=== PATIENT | female | born 1955 | race Caucasian/White ===

== ENCOUNTER 2019-12-03 14:54 | Emergency (ER) | payer MEDICARE, MEDICAID ==
[~2019-12-03] VITALS: Ht 157.5 cm; Wt 69.0 kg
[2019-12-03 15:35] LABS: URINE BILIRUBIN NEGATIVE (Negative); URINE BLOOD 2+ (Negative); URINE CLARITY CLEAR; URINE COLOR YELLOW; URINE GLUCOSE-RANDOM NEGATIVE (Negative); URINE KETONES NEGATIVE (Negative); URINE LEUKOCYTES-REFLEX NEGATIVE (Negative); URINE NITRITE-REFLEX NEGATIVE (Negative); URINE PROTEIN NEGATIVE (Negative); URINE UROBILINOGEN 0.2 E.U./dl (0.2-1.0)
[2019-12-03 15:43] LABS: MUCUS None Seen strn/LPF (None Seen); SQUAMOUS 0-3 Few /LPF (0-3)
[2019-12-03 15:44] LABS: BACTERIA-REFLEX None Seen /HPF (None Seen); CASTS None Seen /LPF (None Seen); CRYSTALS None Seen /LPF (None Seen); URINE RBC 0-2 Rare /HPF (0-2); URINE WBC-REFLEX 0-5 Rare /HPF (0-5)
[2019-12-03 15:48] LABS: ABSOLUTE BASOPHILS 0.1 thou/uL (0.0-0.2); ABSOLUTE EOSINOPHILS 0.1 thou/uL (0.0-0.7); ABSOLUTE LYMPHOCYTES 2.5 thou/uL (0.8-5.3); ABSOLUTE MONOCYTES 0.3 thou/uL (0.0-1.2); ABSOLUTE NEUTROPHILS 2.5 thou/uL (1.6-8.1); BASOPHILS 0.9 %; EOSINOPHILS 1.2 %; MCH 31.4 pg (26.0-34.0); MCHC 34.1 g/dL (28.0-37.0); MCV 92.1 fL (80.0-100.0); MONOCYTES 5.3 %; MPV 8.1 fl. (7.2-11.1); NUCLEATED RBCS 0 /100WBC; PLATELET COUNT* 329 thou/uL (150-400); POLYS 46.6 %; RBC 4.45 mil/uL (4.20-5.00); RDW-CV 13.4 % (10.5-14.5); WBC 5.4 thou/uL (4.0-11.0)
[2019-12-03 15:55] LABS: CREATININE 0.8 mg/dL (0.6-1.3); POTASSIUM 3.6 mmol/L (3.5-5.1)
[2019-12-03 16:06] LABS: ALBUMIN 3.8 g/dL (3.4-5.0); TOTAL BILIRUBIN 0.3 mg/dL (<0.1-1.0); TOTAL PROTEIN 8.4 g/dL (6.4-8.2)
[2019-12-03 16:23] LABS: INFLUENZA A ANTIGEN Negative (Negative); INFLUENZA B ANTIGEN Negative (Negative)
--- NOTE | 2019-12-03 16:40 | EKG ---
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 : 1955 Requested By: Nedra Denson Order Number: [id number] MD: Chuckie Martinez Measurements Intervals [place] Rate: 69 P: 45 WV: 167 QRS: -5 QRSD: 95 T: 17 QT: 395 QTc: 423 Interpretive Statements Sinus rhythm Possible left atrial enlargement Possible anteroseptal infarct, old Baseline wander in lead(s) II No previous ECG available for comparison Electronically Signed On 12-03-2019 16:40:05 [employer] by Chuckie Martinez [email or web address] <ELECTRONICALLY SIGNED> By: Chuckie Martinez MD, [facility] 12/03/19 1640 [id number] 155 Chuckie Martinez MD, FACC /EPI
[2019-12-03] MEDS ORDERED: ONDANSETRON ODT4 MG PO (16:57)
[2019-12-03] MEDS ORDERED: MEDROLDOSEPACK PO (16:57)
[2019-12-03] MEDS ORDERED: TYLENOL WITH CO1 TA1 PO (17:02)
[2019-12-03 17:09] VITALS: BP 174/81
== END 2019-12-03 17:12 | disposition home or self-care (01) ==
LOC: M.ERS 14:54
PROVIDERS: Physician Assistant
DX: M06.9 Rheumatoid arthritis, unspecified (principal); R53.1 Weakness; R11.0 Nausea; I10 Essential (primary) hypertension

== ENCOUNTER → 2021-05-17 | Outpatient (CLI) | payer OTHER, MEDICAID ==
[~2021-05-17] MED LIST: MEDROLDOSEPACK PO; ONDANSETRON ODT4 MG PO; TYLENOL WITH CO1 TA1 PO
== END ==
LOC: M.NUC 05-07 16:20
DX: M25.852 Other specified joint disorders, left hip (principal); M06.9 Rheumatoid arthritis, unspecified